=== PATIENT | male | born 1950 | race Caucasian/White ===

== ENCOUNTER 2020-04-11 21:29 | Emergency (ER) | payer MEDICARE, OTHER ==
[~2020-04-11] VITALS: Ht 180.3 cm; Wt 76.0 kg
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
[2020-04-11] MEDS ORDERED: IV RINGERS SOLUTION,LACTATED 1,000 ML IV SCH (21:35)
[2020-04-11 22:28] LABS: BASO # 0.1 x10^3/uL (0.0-0.2); BASO % 1 % (0-3); EOS # 0.3 x10^3/uL (0.0-0.7); EOS % 5 % (0-3); HEMOGLOBIN 12.4 g/dL (13.0-17.5); LYMPH # 1.7 x10^3/uL (1.0-4.8); LYMPH % 25 % (24-48); MEAN CORPUSCULAR HEMOGLOBIN 28 pg (25-35); MEAN CORPUSCULAR HGB CONC 33 g/dL (31-37); MEAN CORPUSCULAR VOLUME 87 fL (79-100); MONO # 0.8 x10^3/uL (0.0-1.1); MONO % 12 % (0-9); NEUT # 3.8 x10^3uL (1.8-7.7); NEUT % 57 % (31-73); PLATELET COUNT 280 x10^3/uL (140-400); RED BLOOD COUNT 4.39 x10^6/uL (4.30-5.70); RED CELL DISTRIBUTION WIDTH 15.3 % (11.5-14.5); WHITE BLOOD COUNT 6.8 x10^3/uL (4.0-11.0)
[2020-04-11 22:32] LABS: CALCIUM 8.7 mg/dL (8.5-10.1); GFR 74.5; POTASSIUM 3.6 mmol/L (3.5-5.1)
--- NOTE | 2020-04-11 22:38 | RAD ---
CT scan of the head without contrast 04/11/2020 Clinical History: Mental status changes Technique: Unenhanced, contiguous, 5 mm axial sections were obtained through the head. One or more of the following individualized dose reduction techniques were utilized for this study: 1. Automated exposure control. 2. Adjustment of the mA and/or kV according to patient size. 3. Use of iterative reconstruction technique. Findings: There is generalized parenchymal atrophy. Areas of decreased attenuation are seen within the periventricular and subcortical white matter of both cerebral hemispheres consistent with areas of small vessel ischemic disease. No acute parenchymal abnormality is seen. No extra-axial fluid collection is noted. No skull fracture is seen. Impression: No acute intracranial abnormality is seen. Electronically signed by: Stephen Freedman MD (04/11/2020 10:35 PM) [id number]
[2020-04-11 22:47] LABS: ALBUMIN 2.6 g/dL (3.4-5.0); DIRECT BILIRUBIN 0.1 mg/dL (0.0-0.2); MAGNESIUM 1.9 mg/dL (1.8-2.4); TOTAL BILIRUBIN 0.2 mg/dL (0.2-1.0); TOTAL PROTEIN 7.4 g/dL (6.4-8.2)
[2020-04-12 00:33] LABS: AMPHETAMINE/METHAMPHETAMINE NEG (NEG); BARBITURATES NEG (NEG); BENZODIAZEPINES NEG (NEG); CANNABINOIDS NEG (NEG); COCAINE NEG (NEG); METHADONE NEG (NEG); OPIATES NEG (NEG); PHENCYCLIDINE NEG (NEG)
[2020-04-12 00:40] LABS: BILIRUBIN,URINE NEG (NEG); CLARITY,URINE CLEAR; COLOR,URINE YELLOW; GLUCOSE,URINE >=1000 mg/dL (NEG)
[2020-04-12 00:41] LABS: BACTERIA,URINE 0 /HPF (0-FEW); NITRITE,URINE NEG (NEG); RBC,URINE 0 /HPF (0-2); SQUAMOUS EPITHELIAL CELL,UR OCC /LPF; UROBILINOGEN,URINE 0.2 mg/dL (0.2 mg/dL); WBC,URINE 0 /HPF (0-4)
--- NOTE | 2020-04-12 00:49 | RAD ---
AP portable chest radiograph 04/11/2020 Clinical History: Shortness of breath. An AP erect portable digital radiograph of the chest was obtained. The cardiac silhouette is normal in size. The thoracic aorta is tortuous. Emphysematous changes are seen involving both lungs. No acute pulmonary infiltrate is noted. There appears to be a moderate sized hiatal hernia. No acute pulmonary infiltrate is noted. No pneumothorax or pleural effusion is seen. Very mild S-shaped curvature of the thoracolumbar spine is noted. Degenerative changes are seen involving the thoracic spine. IMPRESSION: Emphysematous changes. No acute pulmonary infiltrate is seen. Electronically signed by: Stephen Freedman MD (04/12/2020 12:46 AM) [id number]
[2020-04-12 02:30] VITALS: BP 109/63
--- NOTE | 2020-04-12 04:10 | EKG ---
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
--- NOTE | 2020-04-12 04:11 | EKG ---
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
--- NOTE | 2020-04-14 09:50 | NUR ---
IP: attempt to notify [facility] of COVID-19 results, phone rang multiple times with no answer.
--- NOTE | 2020-04-14 10:38 | NUR ---
IP: Notified nurse Ivette of COVID-19 test result also faxed report.
== END 2020-04-12 02:58 | disposition home or self-care (01) ==
LOC: ER 21:29
DX: F91.1 Conduct disorder, childhood-onset type (principal); D64.9 Anemia, unspecified; E11.9 Type 2 diabetes mellitus without complications; E46 Unspecified protein-calorie malnutrition; I73.9 Peripheral vascular disease, unspecified; R79.89 Other specified abnormal findings of blood chemistry; R79.82 Elevated C-reactive protein (CRP); F41.9 Anxiety disorder, unspecified; M19.90 Unspecified osteoarthritis, unspecified site; J44.9 Chronic obstructive pulmonary disease, unspecified; F17.210 Nicotine dependence, cigarettes, uncomplicated; Z20.828 Contact with and (suspected) exposure to other viral communicable diseases; Z68.23 Body mass index [BMI] 23.0-23.9, adult; Z88.0 Allergy status to penicillin
CPT/HCPCS: 36415; 70450; 71045; 80048; 80076; 80307; 81001; 82550; 83690; 83735; 83880; 84443; 84484; 85025; 85610; 85730; 86140; 93005; 96360; 96361; 99285; J7120; U0003

== ENCOUNTER 2020-06-24 07:49 | Emergency (ER) | payer MEDICARE, OTHER ==
[~2020-06-24] VITALS: Ht 180.3 cm; Wt 83.0 kg
[2020-06-24 07:56] VITALS: BP 147/90
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
== END 2020-06-24 08:25 | disposition home or self-care (01) ==
LOC: ER 07:49
DX: R45.1 Restlessness and agitation (principal); F41.9 Anxiety disorder, unspecified; M19.90 Unspecified osteoarthritis, unspecified site; J44.9 Chronic obstructive pulmonary disease, unspecified; E11.9 Type 2 diabetes mellitus without complications; F03.90 Unspecified dementia, unspecified severity, without behavioral disturbance, psychotic disturbance, mood disturbance, and anxiety; F17.210 Nicotine dependence, cigarettes, uncomplicated; Z86.2 Personal history of diseases of the blood and blood-forming organs and certain disorders involving the immune mechanism; Z88.0 Allergy status to penicillin
CPT/HCPCS: 99283